=== PATIENT | male | born 1970 | race Caucasian/White ===

== ENCOUNTER → 2016-07-30 | Outpatient (CLI) | payer MEDICAID | END | disposition short-term general hospital (02) | LOC: CLRHEU 12:20 | DX: R76.0 Raised antibody titer (principal) ==

== ENCOUNTER → 2016-09-16 | Outpatient (CLI) | payer MEDICAID | END | disposition short-term general hospital (02) | LOC: CLRHEU 11:04 | DX: M34.9 Systemic sclerosis, unspecified (principal); R76.0 Raised antibody titer; M25.50 Pain in unspecified joint ==